=== PATIENT | female | born 1990 | race Caucasian/White ===

== ENCOUNTER 2016-09-08 19:19 | Emergency (ER) | payer BC ==
[~2016-09-08] VITALS: Ht 180.3 cm; Wt 72.7 kg
[~2016-09-08 19:19] MED LIST: BIRTH CONTROL; CEPHALEXIN500 M1 PO; NORCO 325 MG-51 TAB PO; PREVPAC PO; RECLIPSEN 0.151 TAB PO; ZOFRAN 4MG T4 MG/TAB PO
[2016-09-08 19:31] VITALS: BP 137/65; TEMP 98.6
[2016-09-08] MEDS ORDERED: PRENATAL (19:35)
[2016-09-08 20:16] LABS: BASO % 0.5 % (0.0-2.0); EOS # 0.1 (0.0-0.7); EOS % 0.9 % (0-4.0); GRAN # 4.6 (1.4-6.5); GRAN % 58.6 % (42.2-75.2); HEMATOCRIT 38.4 % (37.0-47.0); LYMPH # 2.7 (1.2-3.4); LYMPH % 34.8 % (20.0-51.0); MEAN CELL VOLUME 95 fl (80.0-100.0); MEAN CORPUSCULAR HEMOGLOBIN 32 pg (27.0-31.0); MEAN CORPUSCULAR HGB CONC 34 g/dl (33.0-37.0); MEAN PLATELET VOLUME 11.8 fl (7.4-10.4); MONO # 0.4 (0.1-0.6); MONO % 4.9 % (1.7-9.3); PLATELET COUNT 215 K/mm3 (130-400); RED BLOOD COUNT 4.06 M/mm3 (4.10-5.30); REDCELL DISTRIBUTION WIDTH-CV 11.6 % (11.5-14.5); WHITE BLOOD COUNT 7.8 K/mm3 (4.8-10.8)
[2016-09-08 20:30] LABS: ADJUSTED CALCIUM 9.5 mg/dL (8.4-10.2); ALBUMIN 4.8 gm/dL (3.5-5.0); BILIRUBIN,TOTAL 0.6 mg/dL (0.0-1.0); CALCIUM 10.1 mg/dL (8.4-10.2); CREATININE, serum 0.89 mg/dL (0.52-1.25); POTASSIUM 3.8 mmol/L (3.4-5.0); TOTAL PROTEIN 8.8 gm/dL (6.4-8.2)
[2016-09-08 21:51] VITALS: PULSE 80
== END 2016-09-08 21:50 | disposition home or self-care (01) ==
LOC: COL.ER 19:19
PROVIDERS: Emergency Medicine
DX: O20.0 Threatened abortion (principal); Z3A.01 Less than 8 weeks gestation of pregnancy

== ENCOUNTER 2017-11-08 07:05 | Inpatient (IN) | payer MEDICAID ==
[2017-11-08] VITALS (23 sets, daily range): BP systolic 116–143; BP diastolic 57–83; PULSE 63–112; TEMP 97.8–98.5
[~2017-11-08] VITALS: Ht 182.9 cm; Wt 91.8 kg
[~2017-11-08 07:05] MED LIST changes: +PRENATAL
[2017-11-08 08:14] LABS: BASO % 0.3 % (0.0-2.0); EOS # 0.1 (0.0-0.7); EOS % 0.7 % (0-4.0); GRAN # 5.5 (1.4-6.5); GRAN % 71.5 % (42.2-75.2); HEMATOCRIT 33.2 % (37.0-47.0); HEMOGLOBIN 11.4 g/dl (12.5-16.0); LYMPH # 1.7 (1.2-3.4); LYMPH % 21.8 % (20.0-51.0); MEAN CELL VOLUME 95 fl (80.0-100.0); MEAN CORPUSCULAR HEMOGLOBIN 33 pg (27.0-31.0); MEAN CORPUSCULAR HGB CONC 34 g/dl (33.0-37.0); MEAN PLATELET VOLUME 11.7 fl (7.4-10.4); MONO # 0.4 (0.1-0.6); MONO % 5.2 % (1.7-9.3); PLATELET COUNT 195 K/mm3 (130-400); RED BLOOD COUNT 3.48 M/mm3 (4.10-5.30); REDCELL DISTRIBUTION WIDTH-CV 12.1 % (11.5-14.5)
[2017-11-09 02:50] VITALS: BP 118/62; PULSE 62; TEMP 97.6
[2017-11-09 07:55] VITALS: BP 132/81; PULSE 74
[2017-11-09 16:26] VITALS: BP 116/43; PULSE 70
[2017-11-09 21:00] VITALS: BP 125/71; PULSE 71; TEMP 98.7
[2017-11-10 07:25] VITALS: BP 121/82; PULSE 75; TEMP 97.9
[2017-11-10] MEDS ORDERED: IBU800 M1 PO (08:52)
== END 2017-11-10 13:25 | disposition home or self-care (01) | DRG 775 ==
LOC: LDR 07:05 → OB 07:05 → LDR 09:22 → OB 15:18
PROVIDERS: Student in an Organized Health Care Education/Training Program
PROC: 10E0XZZ Delivery of Products of Conception, External Approach (ICD-10-PCS; principal; 2017-11-08)
PROC: 0KQM0ZZ Repair Perineum Muscle, Open Approach (ICD-10-PCS; 2017-11-08)
PROC: 3E033VJ Introduction of Other Hormone into Peripheral Vein, Percutaneous Approach (ICD-10-PCS; 2017-11-08)
DX: O26.843 Uterine size-date discrepancy, third trimester (principal); O70.1 Second degree perineal laceration during delivery; O69.81X0 Labor and delivery complicated by cord around neck, without compression, not applicable or unspecified; Z3A.39 39 weeks gestation of pregnancy; Z37.0 Single live birth
CPT/HCPCS: J2270; J2400; J2590; J7120